=== PATIENT | male | born 1970 | race Hispanic/Latino ===

== ENCOUNTER → 2018-03-31 | Day surgery (SDC) | payer BC ==
[~2018-03-31] MED LIST: BACITRACIN 50,000 UNIT VIAL ONE; BACITRACIN ZINC 15 GM OINT ONE; BUPIVACAINE HCL 0.5% INJ 30 ML VIAL INJ ONE; CEFAZOLIN SOD 2 GM/D5W 50ML 50 ML IV ONE; CLINDAMYCIN HC300 MG PO; DEXAMETHASONE SOD PHOS INJ 4 MG/ML VIAL ONE; FENTANYL CITRATE/PF 100MCG/2 ML INJ ONE; KETOROLAC TROMETHAMINE 30 MG/ML VIAL ONE; MIDAZOLAM HCL 2 MG/2 ML VIAL ONE; ONDANSETRON HCL INJ 2 MG/ML VIAL ONE; PROPOFOL IV EMULSION 10 MG/ML 20 ML VIAL ONE; SEVOFLURANE INHAL SOLN 250 ML PEN BTL ONE; TYLENOL WITH C1 EACH PO
--- NOTE | 2018-03-31 09:19 | Operative Report ---
DATE OF PROCEDURE: March 31, 2018 PREOPERATIVE DIAGNOSIS: Partial amputation of left index finger. POSTOPERATIVE DIAGNOSIS: Partial amputation of left index finger. OPERATION/PROCEDURE PERFORMED: The patient underwent a completion amputation of the left index finger through the middle phalanx. ANESTHESIA: General endotracheal intubation anesthesia. IV FLUIDS: Per the anesthesia record. BRIEF DESCRIPTION OF THE PATIENT'S OPERATIVE PROCEDURE: Mr. Hampton was taken to the operating room and placed in the supine position on the operating table. Following induction of general anesthesia, as well as endotracheal intubation, the patient's left upper extremity was examined under anesthesia. He was found to have an amputation to the distal aspect of his left index finger. The bone was exposed. The patient's fingernail was gone. The patient had a degloving injury to the undersurface of his index finger to the level of the DIP joint crease. The patient's upper extremity was prepped and draped in a standard surgical fashion. The case was begun by creating an incision over the midportion of the middle phalanx. This incision was carried through skin and carried down to bone. A sagittal saw was used to transect the middle phalanx proximal to the incision site to allow for closure of the wound. The end of the finger was then removed. The wound was copiously irrigated with normal saline. It was closed in a multilayer fashion. Sterile dressings were applied, as well as a finger splint. The patient was then awakened and taken to the postanesthesia care unit in stable condition. Job#: [id number] JASS
== END | disposition home or self-care (01) ==
LOC: OR 05:07
PROVIDERS: ATTEND Specialist
DX: S68.621A Partial traumatic transphalangeal amputation of left index finger, initial encounter (principal); F17.210 Nicotine dependence, cigarettes, uncomplicated; W23.0XXA Caught, crushed, jammed, or pinched between moving objects, initial encounter; Z01.810 Encounter for preprocedural cardiovascular examination; Z68.30 Body mass index [BMI] 30.0-30.9, adult
CPT/HCPCS: 26951; 88305; 88311; 93005; J1100; J1885; J2250; J2405; 88304

== ENCOUNTER 2023-05-02 19:59 | Emergency (ER) | payer BC, OTHER ==
[~2023-05-02] VITALS: Ht 167.6 cm; Wt 84.8 kg
[~2023-05-02 19:59] MED LIST changes: -BACITRACIN 50,000 UNIT VIAL ONE; -BACITRACIN ZINC 15 GM OINT ONE; -BUPIVACAINE HCL 0.5% INJ 30 ML VIAL INJ ONE; -CEFAZOLIN SOD 2 GM/D5W 50ML 50 ML IV ONE; -DEXAMETHASONE SOD PHOS INJ 4 MG/ML VIAL ONE; -FENTANYL CITRATE/PF 100MCG/2 ML INJ ONE; -KETOROLAC TROMETHAMINE 30 MG/ML VIAL ONE; -MIDAZOLAM HCL 2 MG/2 ML VIAL ONE; -ONDANSETRON HCL INJ 2 MG/ML VIAL ONE; -PROPOFOL IV EMULSION 10 MG/ML 20 ML VIAL ONE; -SEVOFLURANE INHAL SOLN 250 ML PEN BTL ONE
[2023-05-02] MEDS ORDERED: IBUPROFEN 600 MG TAB PO STA (20:37)
[2023-05-02 20:39] VITALS: O2SAT 99
== END 2023-05-02 22:21 | disposition home or self-care (01) ==
LOC: ER 20:07
DX: S80.12XA Contusion of left lower leg, initial encounter (principal); W22.8XXA Striking against or struck by other objects, initial encounter; Y93.89 Activity, other specified; Y92.89 Other specified places as the place of occurrence of the external cause
CPT/HCPCS: 99283